=== PATIENT | male | born 1965 | race Caucasian/White ===

== ENCOUNTER 2017-02-19 15:52 | Emergency (ER) | payer BC ==
[2017-02-19 16:01] VITALS: BMI 38.7
--- NOTE | 2017-02-19 17:46 | DR.GENAD ---
HPI - PCP Primary Care Physician: taj - Complaint/Symptoms Chief Complaint Doctors Comments: Patient states that his back pain has been present for the past two months that comes and goes. The pain is mild, 6/10, aggravated by flexion.. Chief Complaint:: patient stated he has beenn having left lower back pain and abd pain that has been going on for 2 months that comes and goes. - Source History Provided: Patient - Mode of Arrival Mode of Arrival: Ambulatory - Timing Onset of Chief Complaint: 12/18/16 PMH - PMH Past Medical History: Yes Past Medical History: Dyslipidemia, Hypertension Past Surgical History: Yes Surgical History: Angioplasty/Stents, CABG/Valve Surgery, Other - Family History History of Family Medical Conditions: No - Social History Does patient currently use any type of tobacco product: No Have you used tobacco products in the last 12 months: No Type of Tobacco Use: None Does any household member use tobacco: No Alcohol Use: None Do you use any recreational Drugs:: No Lives With: Alone Lives Where: Home - infectious screening In the last 2 months have you had wt loss of >10#?: NO Have you had fever, night sweats or hemotysis?: No Have you traveled outside the country in the last 6 months?: No Isolation: Standard ROS - Review of Systems Eyes: No Symptoms Reported ENTM: No Symptoms Reported Respiratoy: No Symptoms Reported Cardiovascular: No Symptoms Reported Gastrointestinal/Abdominal: No Symptoms Reported Genitourinary: No Symptoms Reported Neurological: No Symptoms Reported Musculoskeletal: No Symptoms Reported Integumentary: No Symptoms Reported Hematologic/Lymphatic: No Symptoms Reported Endocrine: No Symptoms Reported Psychiatric: No Symptoms Reported All Other Systems: Reviewed and Negative PE - Vital Signs Vitals: Temperature 98.9 F Pulse Rate 89 Respiratory Rate 16 Blood Pressure 143/85 O2 Sat by Pulse Oximetry 96 - General General Appearance: Alert, In No Apparent Distress - Head Head Exam: Normal Inspection, Atraumatic - Eyes Eye exam: Normal Appearance, PERRL, EOMI - ENT ENT Exam: Normal Exam External Ear Exam: Normal External Inspection TM/Canal Exam: Bilateral Normal Nose Exam: Normal Nose Exam Mouth Exam: Normal Inspection Throat Exam: Normal Inspection - Neck Neck Exam: Normal Inspection - Chest Chest Inspection: Normal Inspection - Respiratory Respiratory Exam: Normal Lung Sounds Bilat Respiratory Exam: Bilateral Clear to Auscultation - Cardiovascular Cardiovascular Exam: Regular Rate - Abdominal Exam Abdominal Exam: Distention, Dimnished Bowel Sounds Abdominal Tenderness: Suprapubic - Extremities Extremities Exam: Normal Inspection, Full ROM - Back Back Exam: Normal Inspection - Neurologic Neurological Exam: Alert, Oriented X3, CN II-XII Intact - Psychiatric Psychiatric Exam: Normal Affect, Normal Mood - Skin Skin Exam: Warm, Dry, Intact Course - Reevaluation 1st: Improved ROR - Labs Reviewed Result Diagrams: 02/19/17 17:55 02/19/17 17:55 Laboratory: WBC 8.1 X10^3/uL (3.6-10.0) 02/19/17 17:55 RBC 5.25 X10^6/uL (4.7-6.0) 02/19/17 17:55 Hgb 15.8 g/dL (13.5-18.0) 02/19/17 17:55 Hct 44.4 % (42.0-54.0) 02/19/17 17:55 MCV 84.5 fL (80.0-100.0) 02/19/17 17:55 MCH 30.0 pg (27.0-34.0) 02/19/17 17:55 MCHC 35.6 g/dL (33.0-35.0) H 02/19/17 17:55 RDW 13.7 % (11.6-16.5) 02/19/17 17:55 Plt Count 156 X10^3/uL (150.0-450.0) 02/19/17 17:55 MPV 7.5 fL (7.4-11.0) 02/19/17 17:55 Neut % 56.7 % (42.0-75.0) 02/19/17 17:55 Lymph % 29.0 % (21.0-51.0) 02/19/17 17:55 [place] % 11.8 % (0.0-13.0) 02/19/17 17:55 Eos % 1.4 % (0.9-2.9) 02/19/17 17:55 Baso % 1.1 % (0.2-1.0) H 02/19/17 17:55 Neut # 4.6 x10^3/uL (2.2-4.8) 02/19/17 17:55 Lymph # 2.3 X10^3/uL (1.3-2.9) 02/19/17 17:55 [place] # 1.0 x10^3/uL (0.3-0.8) H 02/19/17 17:55 Eos # 0.1 x10^3/uL (0.0-0.2) 02/19/17 17:55 Baso # 0.1 X10^3/uL (0.0-0.1) 02/19/17 17:55 Absolute Nucleated RBC 0.0 /100WBC 02/19/17 17:55 Sodium 140 mmol/L (136-145) 02/19/17 17:55 Corrected Sodium TNP 02/19/17 17:55 Potassium 3.4 mmol/L (3.5-5.1) L 02/19/17 17:55 Chloride 103 mmol/L (98-107) 02/19/17 17:55 Carbon Dioxide 28.2 mmol/L (21-32) 02/19/17 17:55 BUN 21 mg/dL (7-18) H 02/19/17 17:55 Creatinine 1.86 mg/dL (0.70-1.30) H 02/19/17 17:55 Est GFR (MDRD) Af Amer 49 (>60) L 02/19/17 17:55 Est GFR (MDRD) Non-Af 41 (>60) L 02/19/17 17:55 Glucose 92 mg/dL (65-99) 02/19/17 17:55 Calcium 8.5 mg/dL (8.5-10.1) 02/19/17 17:55 Corrected Calcium TNP 02/19/17 17:55 Total Bilirubin 0.70 mg/dL (0.2-1.0) 02/19/17 17:55 AST 25 Units/L (15-37) 02/19/17 17:55 ALT 56 Units/L (12-78) 02/19/17 17:55 Alkaline Phosphatase 66 Units/L (46-116) 02/19/17 17:55 C-Reactive Protein 7.10 mg/L (0-3.0) H 02/19/17 17:55 Total Protein 7.5 g/dL (6.4-8.2) 02/19/17 17:55 Albumin 4.0 g/dL (3.4-5.0) 02/19/17 17:55 Globulin 3.5 g/dL (2.5-4.5) 02/19/17 17:55 Albumin/Globulin Ratio 1.1 Ratio (1.1-2.1) 02/19/17 17:55 - XRAY XRAY Interpreted by: Radiologist (CT: Abd/Pel: Within the limits of a noncontrast exam, the liver is diffusely hypoattenuating, complaible with fatty infiltration. The gallbladder, spleen,pancreas and adrenals are unremarkable. There is very mild left sided hydronephrosis, secondary to thumb tuhmb a 4mm stone within the proximal left ureter. An additional 3mm stone is present just superior to the left ureteral stone. There is a punctate nonobstructing stone within the inferior right kidney. A parapelvic cyst within the upper right kidney is also noted. No radiopaque right renal stones or right sided hydroureteronephrosis is identified. There is no bowel inflammation or evidence of obstructionn. The appendix is normal. There is mild calcification of the aortoiliac system without aneurysm. The urinary bladder is normall. No radioppaque right renal stones or right sided hydroureteronephrosis is identified. There is no bowel inflammation or evidence of obstruction. The appendix is normal. There is mild calcification of the aortoiliac system without aneurysm. The urinary bladder is luke.l The prostate is centrally calcified. No free air. free fluid or lymphadenopathy is identified.) - Diagnosis Discharge Problem: Mild left sided hydronehprosis, Nonobstructing right nephrolithiasis, Hepatic steatosis - Discharge Plan Condition: Stable - Follow ups/Referrals Follow ups/Referrals: NFD,None [Primary Care Provider] - 3 days - Instructions
[2017-02-19] MEDS ORDERED: TORADOL 60 MG VIAL IM ONE (17:48)
[2017-02-19 18:03] LABS: BASOPHILS # (AUTO) 0.1 X10^3/uL (0.0-0.1); EOSINOPHILS # (AUTO) 0.1 x10^3/uL (0.0-0.2); HEMOGLOBIN 15.8 g/dL (13.5-18.0); LYMPHOCYTES # (AUTO) 2.3 X10^3/uL (1.3-2.9); MEAN PLATELET VOLUME 7.5 fL (7.4-11.0); RED CELL DISTRIBUTION WIDTH 13.7 % (11.6-16.5); WHITE BLOOD COUNT 8.1 X10^3/uL (3.6-10.0)
[2017-02-19 18:12] LABS: BASOPHILS % (AUTO) 1.1 % (0.2-1.0); EOSINOPHILS % (AUTO) 1.4 % (0.9-2.9); HEMATOCRIT 44.4 % (42.0-54.0); MEAN CORPUSCULAR HGB CONC 35.6 g/dL (33.0-35.0); MEAN CORPUSCULAR VOLUME 84.5 fL (80.0-100.0); MONOCYTES % (AUTO) 11.8 % (0.0-13.0); NEUTROPHILS # (AUTO) 4.6 x10^3/uL (2.2-4.8); NEUTROPHILS % (AUTO) 56.7 % (42.0-75.0); PLATELET COUNT 156 X10^3/uL (150.0-450.0); RED BLOOD COUNT 5.25 X10^6/uL (4.7-6.0)
--- NOTE | 2017-02-19 18:12 | RAD ---
Examination: Lumbar spine, AP and lateral views History: Back pain 2 months Findings: There is a minimal levoscoliosis centered at L3. Alignment of vertebrae is anatomic. Disc s paces are preserved. No fracture, pedicle destruction or sacroiliac lesion is noted. There are 2 smal l calcifications projected to the left of the L4 vertebra. Impression: No acute or significant lumbar spine abnormality noted. Left para lumbar calcification is nonspecific but could represent ureteral calculus. Correlate clinically with additional radiographic imaging if appropriate. Reported By:
[2017-02-19 18:20] LABS: ALANINE AMINOTRANSFERASE 56 Units/L (12-78); ALKALINE PHOSPHATASE 66 Units/L (46-116); ASPARTATE AMINO TRANSFERASE 25 Units/L (15-37); BLOOD UREA NITROGEN 21 mg/dL (7-18); CALCIUM 8.5 mg/dL (8.5-10.1); CARBON DIOXIDE 28.2 mmol/L (21-32); CHLORIDE 103 mmol/L (98-107); CREATININE 1.86 mg/dL (0.70-1.30); SODIUM 140 mmol/L (136-145); TOTAL PROTEIN 7.5 g/dL (6.4-8.2); eGFR BLACK RACES 49 (>60); eGFR NON BLACK RACES 41 (>60)
[2017-02-19] MEDS ORDERED: TORADOL 60 MG VIAL ONE (18:34)
[2017-02-19] MEDS ORDERED: K-LYTE EFFERVESCENT PO ONE (18:35)
[2017-02-19] MEDS ORDERED: K-LYTE EFFERVESCENT ONE (18:43)
--- NOTE | 2017-02-19 19:06 | CT ---
CT abdomen and pelvis without contrast Indication: Back pain for 2 months, history of renal stones Technique: Helical CT images of the abdomen and pelvis were obtained without IV contrast. Reformatted images in the coronal and sagittal planes were also generated for review. Comparison: None Findings: Lung bases are clear. No aggressive osseous lesions are identified. Within the limits of a noncontrast exam, the liver is diffusely hypoattenuating, compatible with fatt y infiltration. The gallbladder, spleen, pancreas and adrenals are unremarkable. There is very mild l eft-sided hydronephrosis, secondary to thumb a 4 mm stone within the proximal left ureter. An additio nal 3 mm stone is present just superior to the left ureteral stone. There is a punctate nonobstructin g stone within the inferior right kidney. A parapelvic cyst within the upper right kidney is also not ed. No radiopaque right renal stones or right-sided hydroureteronephrosis is identified. There is no bowel inflammation or evidence of obstruction. The appendix is normal. There is mild calc ification of the aortoiliac system without aneurysm. The urinary bladder is normal. The prostate is c entrally calcified. No free air, free fluid or lymphadenopathy is identified. Impression: Mild left-sided hydronephrosis, secondary to 2 stones within the proximal left ureter, the largest me asuring 4 mm, as detailed above. Nonobstructing right nephrolithiasis. Hepatic steatosis and additional incidental findings, as above. Reported By:
[2017-02-19 19:30] LABS: APPEARANCE,URINE CLEAR (CLEAR); BILIRUBIN,URINE NEGATIVE (NEGATIVE); COLOR,URINE AMBER (YELLOW); GLUCOSE, URINE NEGATIVE (NEGATIVE); KETONES,URINE TRACE (NEGATIVE); NITRITES,URINE NEGATIVE (NEGATIVE); PROTEIN,URINE TRACE (NEGATIVE)
[2017-02-19 19:31] LABS: AMORPHOUS SEDIMENT,UR TRACE /HPF (NEGATIVE); BACTERIA,URINE TRACE /HPF (NEGATIVE); BLOOD/HEMOGLOBIN,URINE TRACE (NEGATIVE); LEUKOCYTE ESTERASE ,URINE NEGATIVE (NEGATIVE); SQUAMOUS EPITHELIAL CELL,UR RARE /HPF (NEGATIVE); UROBILINOGEN,URINE 1+ (NORMAL)
[2017-02-19 20:08] VITALS: BP 144/72
== END 2017-02-19 19:55 | disposition home or self-care (01) ==
LOC: ER 16:07
DX: N13.30 Unspecified hydronephrosis (principal); N20.0 Calculus of kidney; M54.5 Low back pain
CPT/HCPCS: 36415; 72100; 74176; 80053; 81001; 85025; 86140; 96372; 99282; 99283; J1885